=== PATIENT | female | born 1990 | race Caucasian/White ===

== ENCOUNTER 2018-01-14 18:53 | Inpatient (IN) | payer MEDICAID ==
[~2018-01-14] VITALS: Ht 167.6 cm; Wt 82.5 kg
[~2018-01-14 18:53] MED LIST: DOCU-131 PO; HYDR-3240 PO; IBUP-1223 PO
[2018-01-14] MEDS ORDERED: PROMETHAZINE 25 MG/ML, 1ML IM STA (19:21)
[2018-01-14] MEDS ORDERED: PROMETHAZINE 25 MG/ML, 1ML ONE (19:26)
[2018-01-14] MEDS ORDERED: OXYcodone/APAP 5/325MG TABLET ONE (19:27)
[2018-01-14] MEDS ORDERED: OXYcodone/APAP 5/325MG TABLET PO ONE (19:30)
[2018-01-14 19:50] LABS: BASOPHILS # (AUTO) 0.05 x10^3/uL (0-0.1); BASOPHILS % (AUTO) 0 % (0-1); EOSINOPHILS # (AUTO) 0.01 x10^3/uL (0-0.4); EOSINOPHILS % (AUTO) 0 % (1-7); LYMPHOCYTES # (AUTO) 0.88 x10^3/uL (1-3.4); LYMPHOCYTES % (AUTO) 6 % (22-44); MD NO; MEAN CORPUSCULAR HEMOGLOBIN 29.3 pg (27.0-34.8); MEAN CORPUSCULAR VOLUME 86.3 fL (80-100); MEAN PLATELET VOLUME 8.6 fL (7.4-10.4); MONOCYTES # (AUTO) 0.59 x10^3/uL (0.2-0.8); MONOCYTES % (AUTO) 4 % (2-9); NEUTROPHILS % (AUTO) 89 % (42-75); PLATELET COUNT 232 x10^3/uL (130-400); RED BLOOD COUNT 4.31 x10^6/uL (3.82-5.3); RED CELL DISTRIBUTION WIDTH 13.4 % (9.6-15.2)
[2018-01-14 19:59] LABS: ALANINE AMINOTRANSFERASE 16 U/L (12-78); ALBUMIN 3.4 g/dL (3.4-5.0); ANION GAP 7 mmol/L (5-15); CALCIUM 8.3 mg/dL (8.5-10.1); CHLORIDE 108 mmol/L (98-107); CREATININE 0.79 mg/dL (0.55-1.02)
[2018-01-14] MEDS ORDERED: SODIUM CHLORIDE FLUSH 10ML SYR IVF ONE (20:00)
[2018-01-14 20:03] LABS: ALKALINE PHOSPHATASE 64 U/L (45-117); BILIRUBIN,TOTAL 0.4 mg/dL (0.2-1.0); TOTAL PROTEIN 6.9 g/dL (6.4-8.2)
[2018-01-14 20:13] LABS: MICROSCOPIC INDICATED
[2018-01-14 20:36] LABS: CULTURE INDICATED? YES
[2018-01-14] MEDS ORDERED: OMNIPAQUE 350 MG/ML, 100ML BOTTLE ONE (20:40)
[2018-01-14] MEDS ORDERED: CIPROFLOXACIN/PMX 400MG/200ML 200 ML ONE (21:10)
[2018-01-14] MEDS ORDERED: TRAZ50TA66 PO (21:15)
[2018-01-14] MEDS ORDERED: POTASSIUM CHLORIDE 20 MEQ in D5%-0.45% NACL 1,000 ML IV ONE (21:20)
[2018-01-14] MEDS ORDERED: CIPROFLOXACIN/PMX 400MG/200ML 100 ML IVPB ONE (21:30)
[2018-01-14] MEDS ORDERED: ONDANSETRON 2MG/ML, 2ML IVPush PRN (21:30)
[2018-01-14] MEDS ORDERED: ONDANSETRON 2MG/ML, 2ML IVPush ONE (21:30)
[2018-01-14] MEDS ORDERED: METRONIDAZOLE PMX 500MG/100ML 100 ML IVPB ONE (21:30)
[2018-01-14] MEDS ORDERED: SODIUM CHLORIDE 0.9% 1,000ML IVBOLUS ONE (21:30)
[2018-01-14] MEDS ORDERED: MORPHINE SULFATE 4 MG/ML, 1ML IVPush PRN ×2 (21:30)
[2018-01-14] MEDS ORDERED: BUPIVACAINE/PF-EPI 0.5% 1:200K ONE (22:59)
[2018-01-14 23:08] VITALS: BP 92/55
[2018-01-15 01:23] VITALS: BP 75/47
[2018-01-15] MEDS ORDERED: SODIUM CHLORIDE 0.9% 1,000ML IVBOLUS ONE (01:30)
[2018-01-15] MEDS ORDERED: FENTANYL PF 100 MCG/2ML ONE (06:11)
[2018-01-15] MEDS ORDERED: MIDAZOLAM 1 MG/ML, 2ML ONE (06:11)
[2018-01-15] MEDS ORDERED: SUGAMMADEX 200 MG/2 ML IVPush ONE (06:56)
[2018-01-15] MEDS ORDERED: BUPIVACAINE/PF-EPI 0.5% 1:200K INFIL ONE (06:58)
[2018-01-15] MEDS ORDERED: DIAZEPAM 5 MG/ML, 2ML IVPush PRN (07:00)
[2018-01-15] MEDS ORDERED: HYDROmorphone 2 MG/ML, 1ML IVPush PRN (07:00)
[2018-01-15] MEDS ORDERED: ACETAMINOPHEN 325 MG TABLET PO PRN (07:00)
[2018-01-15] MEDS ORDERED: PROMETHAZINE 25 MG/ML, 1ML IV PRN (07:00)
[2018-01-15] MEDS ORDERED: MEPERIDINE/PF 25MG/0.5ML IVPush PRN (07:00)
[2018-01-15] MEDS ORDERED: OXYcodone 5 MG/5 ML ORAL.SOL UDC PO PRN (07:00)
[2018-01-15] MEDS ORDERED: LABETALOL 5MG/ML, 20ML IV PRN (07:00)
[2018-01-15] MEDS ORDERED: hydrALAzine 20 MG/ML, 1ML IV PRN (07:00)
[2018-01-15] MEDS ORDERED: ALBUTEROL SULFATE 2.5 MG/3 ML NPPB PRN (07:00)
[2018-01-15] MEDS ORDERED: FENTANYL PF 100 MCG/2ML IV PRN (07:00)
[2018-01-15] MEDS ORDERED: ACETAMINOPHEN 650 MG/20.3 ML UDC ONE (07:23)
[2018-01-15] MEDS ORDERED: OXYcodone 5 MG/5 ML ORAL.SOL UDC ONE (07:24)
[2018-01-15 08:00] VITALS: BP 89/56
[2018-01-15] MEDS ORDERED: ONDANSETRON 2MG/ML, 2ML IV PRN (09:00)
[2018-01-15] MEDS ORDERED: OXYcodone/APAP 5/325MG TABLET PO PRN (09:00)
[2018-01-15] MEDS ORDERED: MORPHINE SULFATE 4 MG/ML, 1ML IV PRN (09:00)
[2018-01-15] MEDS ORDERED: CEFOTETAN 2 GM ONE (10:37)
[2018-01-15] MEDS ORDERED: KETOROLAC 30 MG/1 ML ONE (10:37)
[2018-01-15] MEDS ORDERED: DEXAMETHASONE 4 MG/ML, 1ML ONE (10:37)
[2018-01-15] MEDS ORDERED: PROPOFOL 10 MG/ML, 20ML ONE (10:37)
[2018-01-15] MEDS ORDERED: ONDANSETRON 2MG/ML, 2ML ONE (10:37)
[2018-01-15] MEDS ORDERED: ROCURONIUM 10MG/ML,5ML ONE (10:37)
[2018-01-15] MEDS ORDERED: OXYC-302 PO (11:17)
[2018-01-15] MEDS ORDERED: POLY17PO29 PO (11:51)
[2018-01-15 14:00] VITALS: BP 89/54
== END 2018-01-15 16:05 | disposition home or self-care (01) | DRG 342 ==
LOC: ED 19:46 → 4NOR 21:21 → ED 22:27
PROVIDERS: ADMIT Colon & Rectal Surgery; ATTEND Colon & Rectal Surgery
PROC: 0DTJ4ZZ Resection of Appendix, Percutaneous Endoscopic Approach (ICD-10-PCS; principal; 2018-01-15 06:30)
DX: K35.30 Acute appendicitis with localized peritonitis, without perforation or gangrene (principal); R18.8 Other ascites; N20.0 Calculus of kidney; Z90.722 Acquired absence of ovaries, bilateral; Z88.0 Allergy status to penicillin
CPT/HCPCS: 36415; 99285; J3490; 74177; 80053; 81001; 83690; 84703; 85018; 85025; 87077; 87086; 87186; 88304; 96372; 96374; G0378; J0744; J1100; J1885; J2250; J2405; J2550; J2704; J3010; Q9967; J7030